=== PATIENT | male | born 1975 | race Caucasian/White ===

== ENCOUNTER 2023-03-01 02:34 | Emergency (ER) | payer OTHER ==
[2023-03-01] MEDS: Morphine 2 MG/ML SYRINGE IVPUSH STA (03:04)
[2023-03-01] MEDS: Diphtheria,Pertussis(Acell),Tetanus Vaccine 0.5 ML Syringe IM ONE (03:27)
[2023-03-01] MEDS: Morphine 2 MG/ML SYRINGE IVPUSH ONE (04:07)
[2023-03-01 04:22] VITALS: BP 145/78; PULSE 76
[2023-03-01] MEDS: Take Home: Acetaminophen/HYDROcodone 325-5 MG, 2 Tab Pack PO ONE (04:27)
== END 2023-03-01 04:28 | disposition home or self-care (01) ==
LOC: CC.ED 02:34
DX: S68.621A Partial traumatic transphalangeal amputation of left index finger, initial encounter (principal); F17.210 Nicotine dependence, cigarettes, uncomplicated; Z23 Encounter for immunization; Z88.5 Allergy status to narcotic agent; W26.8XXA Contact with other sharp object(s), not elsewhere classified, initial encounter
CPT/HCPCS: 73140-F1; 90471; 90715; 96374; 96376; 99283; 99283-25; A9270-GY; J2270

== ENCOUNTER 2024-05-12 10:05 | Emergency (ER) | payer BC, OTHER ==
[2024-05-12] MEDS: Take Home: Cephalexin 500 MG Cap, 6 Cap Pack PO ONE (10:47)
[2024-05-12] MEDS: Bacitracin/Neomycin/Polymyxin B Oint 0.9 GM U/D Packet TOP ONE (10:49)
== END 2024-05-12 11:00 | disposition home or self-care (01) ==
LOC: CC.ED 10:05
DX: T81.49XA Infection following a procedure, other surgical site, initial encounter (principal); F17.210 Nicotine dependence, cigarettes, uncomplicated; Z88.5 Allergy status to narcotic agent
CPT/HCPCS: 99283; A9270

== ENCOUNTER 2024-10-02 19:11 | Emergency (ER) | payer BC ==
[2024-10-02 19:45] LABS: AMPHETAMINES,URINE NEGATIVE (NEGATIVE); APPEARANCE,URINE CLEAR (CLEAR); BARBITURATES,URINE NEGATIVE (NEGATIVE); BENZODIAZEPINE,URINE NEGATIVE (NEGATIVE); BILIRUBIN,URINE NEGATIVE (NEGATIVE); COLOR,URINE LIGHT YELLOW (YELLOW); GLUCOSE,URINE NEGATIVE (NEGATIVE); KETONES,URINE NEGATIVE (NEGATIVE); LEUKOCYTE ESTERASE,URINE NEGATIVE (NEGATIVE); MDMA (ECSTASY), URINE NEGATIVE (NEGATIVE); METHADONE,URINE NEGATIVE (NEGATIVE); METHAMPHETAMINES,URINE NEGATIVE (NEGATIVE); NITRITE,URINE NEGATIVE (NEGATIVE); OCCULT BLOOD,URINE NEGATIVE (NEGATIVE); OPIATES,URINE NEGATIVE (NEGATIVE); OXYCODONE,URINE NEGATIVE (NEGATIVE); PH,URINE 5.5 (4.5-8.0); PHENCYCLIDINE,URINE NEGATIVE (NEGATIVE); PROTEIN,URINE NEGATIVE (NEGATIVE); TCA,URINE NEGATIVE (NEGATIVE); UROBILINOGEN,URINE 0.2 EU/dL (0.2-1.0)
[2024-10-02] MEDS: Orphenadrine 60 MG/2 ML Inj IM ONE (21:38)
== END 2024-10-02 21:30 | disposition home or self-care (01) ==
LOC: CC.ED 19:11
DX: S33.5XXA Sprain of ligaments of lumbar spine, initial encounter (principal); Z88.8 Allergy status to other drugs, medicaments and biological substances
CPT/HCPCS: 72128; 72131; 80305-QW; 81003; 99284